=== PATIENT | male | born 1950 | race Caucasian/White ===

== ENCOUNTER 2017-02-01 10:37 | Inpatient (IN) | payer OTHER ==
[~2017-02-01] VITALS: Ht 165.1 cm; Wt 85.6 kg
[2017-02-01] VITALS (21 sets, daily range): BP systolic 132–156; BP diastolic 70–89; PULSE 76–90; RESP 13–27; Ht 165.1 cm; Wt 85.6 kg
--- NOTE | 2017-02-01 10:25 | HPN ---
Date/Time of Note Date/Time of Note DATE: 02/01/17 TIME: 10:25 Interval H&P Admission Note Pt. seen H&P reviewed: No system changes PEDRO PAYAN MD Feb 01, 2017 10:25
[~2017-02-01 10:37] MED LIST: CEFTRIAXONE 1 GM/NS 50 ML IVPB SCH
[2017-02-01] MEDS ORDERED: ASPI-664 PO (11:23)
[2017-02-01] MEDS ORDERED: LISI2.5T59 PO (11:24)
[2017-02-01] MEDS ORDERED: HYDR25TA6 PO (11:24)
[2017-02-01] MEDS ORDERED: FENTAnyl 50 MCG/ML VIAL ONE ×2 (12:09→12:58)
[2017-02-01] MEDS ORDERED: MIDAZOLAM 1 MG/ML 2 ML INJ ONE (12:09)
[2017-02-01] MEDS ORDERED: PROPOFOL 40 ML ONE (12:09)
[2017-02-01] MEDS ORDERED: LIDOCAINE 2% (SDV) 5 ML INJ ONE (12:09)
[2017-02-01] MEDS ORDERED: DEXAMETHASONE 4 MG/ML 1 ML INJ ONE (12:12)
[2017-02-01] MEDS ORDERED: ONDANSETRON 4 MG INJ ONE (12:12)
[2017-02-01] MEDS ORDERED: ACETAMINOPHEN 1000MG/100ML IV 100 ML ONE (12:12)
[2017-02-01] MEDS ORDERED: METOCLOPRAMIDE 10 MG INJ ONE (12:12)
[2017-02-01] MEDS ORDERED: LABETALOL HCL 20MG INJ IV PRN (14:30)
[2017-02-01] MEDS ORDERED: MAGNESIUM HYDROXIDE 30ML CUP PO PRN (14:30)
[2017-02-01] MEDS ORDERED: DIPHENHYDRAMINE 50 MG INJ IV PRN (14:30)
[2017-02-01] MEDS ORDERED: HYDROmorphONE (0.2 MG/ML) 10ML SYG IV PRN ×3 (14:30)
[2017-02-01] MEDS ORDERED: METOCLOPRAMIDE 10 MG INJ IV PRN (14:30)
[2017-02-01] MEDS ORDERED: CEFTRIAXONE 1 GM/50 ML (PMX) 50 ML IVPB SCH (14:30)
[2017-02-01] MEDS ORDERED: MEPERIDINE 25 MG INJ IV PRN (14:30)
[2017-02-01] MEDS ORDERED: ONDANSETRON 4 MG INJ IV PRN (14:30)
--- NOTE | 2017-02-01 14:33 | OPR ---
Date/Time of Note Date/Time of Note DATE: 02/01/17 TIME: 14:26 Operative Report Procedure Date: Feb 01, 2017 Preoperative Diagnosis Benign prostatic hypertrophy with lower urinary tract symptoms and urinary retention Postoperative Diagnosis Benign prostatic hypertrophy with lower urinary tract symptoms and urinary retention Operation Performed Transurethral resection of the prostate Surgeon Steve Diamond Anesthesia Type: general Anesthesiologist: BRIE JOE Estimated Blood Loss: 50 - 100 ml's Specimens Prostatic tissue Indications Benign prostatic hypertrophy with lower urinary tract symptoms and urinary retention Operative\Procedure Findings Benign prostatic hypertrophy with lower urinary tract symptoms Procedure Description The patient was brought to the operating room general anesthesia was induced. Timeout was done the patient was identified by his name birthdate and the procedure. The patient was given 1 g of ceftriaxone IV at the start of the procedure. The genital area was then prepped and draped in the usual sterile manner cystoscopy was done was a 22 Martiniquais cystoscope and it showed prostatic enlargement with obstruction, the bladder was trabeculated, there was no bladder tumors or stones. The cystoscope was then removed and the urethra was dilated with a [place] dilators up to #30 Martiniquais. The 26 Martiniquais bipolar resectoscope sheath was then introduced under direct vision through the penile urethra all the way to the bladder. Then the resection of the prostate was started first the median lobe was resected then the right lateral lobe then the left lateral lobe and finally the anterior lobe as well as apical tissue. All the bleeders were electrocoagulated, all the prostatic chips were evacuated, good hemostasis was obtained. The ureteral orifices as well as external sphincter were intact and safeguarded during the whole procedure. At the end of the procedure the resectoscope was removed and #24 Martiniquais three-way Lopez catheter was inserted into the bladder the balloon was inflated with 60 mL of sterile water the catheter was connected to a drainage back and continuous bladder irrigation was started in the operating room with normal saline. The patient was transferred to the recovery room in stable and satisfactory condition. STEVE DIAMOND MD Feb 01, 2017 14:33
[2017-02-01] MEDS: DOCUSATE SODIUM 100 MG CAP PO SCH ×2 (19:57→20:38)
[2017-02-01] MEDS ORDERED: HYDROCODONE/APAP (5/325) TAB PO PRN (20:30)
[2017-02-01] MEDS: CEFTRIAXONE 1 GM/50 ML (PMX) 50 ML IVPB SCH (20:34)
[2017-02-01] MEDS: DEXTROSE 5%-0.45% NACL 1,000 ML IV SCH (20:34)
[2017-02-01] MEDS: LISINOPRIL 5 MG TAB PO SCH (20:37)
[2017-02-01] MEDS: HYDROCHLOROTHIAZIDE 25 MG TAB PO SCH (20:38)
[2017-02-02 01:52] VITALS: BP 98/67; RESP 20
[2017-02-02 06:20] LABS: BASOPHILS % 0.2 % (0.0-2.0); EOSINOPHILS % 0.1 % (0.0-7.0); HEMATOCRIT 38.5 % (42.0-52.0); LYMPHOCYTES # 1.2 10^3/ul (0.8-2.9); MEAN CORPUSCULAR HEMOGLOBIN 29.8 pg (29.0-33.0); MEAN CORPUSCULAR HGB CONC 33.8 g/dl (32.0-37.0); MEAN CORPUSCULAR VOLUME 88.3 fl (82.0-101.0); MEAN PLATELET VOLUME 9.6 fl (7.4-10.4); MONOCYTE # 0.8 10^3/ul (0.3-0.9); MONOCYTES % 6.4 % (0.0-11.0); NEUTROPHIL # 10.2 10^3/ul (1.6-7.5); NEUTROPHILS % 82.9 % (39.0-77.0); PLATELET COUNT 196 10^3/UL (140-415); RED BLOOD COUNT 4.36 10^6/ul (4.70-6.10); RED CELL DISTRIBUTION WIDTH 13.1 % (11.5-14.5); WHITE BLOOD COUNT 12.3 10^3/ul (4.8-10.8)
[2017-02-02 07:19] VITALS: BP 104/59; RESP 20
[2017-02-02 08:06] VITALS: BP 104/59; RESP 18
--- NOTE | 2017-02-02 08:53 | PN ---
Date/Time of Note Date/Time of Note DATE: 02/02/17 TIME: 08:51 Assessment/Plan VTE Prophylaxis VTE Prophylaxis Intervention: SCD's Lines/Catheters IV [facility] Peripheral IV Urinary Cath still in place: Yes Reason Cath still needed: other (indicate) (Status post TURP) Assessment/Plan Chief Complaint/Hosp Course Patient is status post transurethral resection of the prostate and has continuous bladder irrigation. The irrigation return is pinkish and he still needed irrigation for today therefore we will keep the irrigation going at most likely will stop it tomorrow and if his urine remains clear then he could be discharged home with the Lopez catheter and the left bag Problems: Exam/Review of Systems Vital Signs Vitals Vital Signs Date Time Temp Pulse Resp B/P Pulse Ox O2 Delivery O2 Flow Rate FiO2 02/02/17 08:06 97.7 70 18 104/59 96 02/01/17 18:00 Room Air Intake and Output 02/01/17 02/01/17 02/02/17 15:00 23:00 07:00 Intake Total 1900 ml 5470 ml 400 ml Output Total 3400 ml 5550 ml Balance -1500 ml -80 ml 400 ml Results Result Diagram: 02/02/17 0538 Results 24 hrs Laboratory Tests Test 02/02/17 05:38 White Blood Count 12.3 H Red Blood Count 4.36 L Hemoglobin 13.0 L Hematocrit 38.5 L Mean Corpuscular Volume 88.3 Mean Corpuscular Hemoglobin 29.8 Mean Corpuscular Hemoglobin Concent 33.8 Red Cell Distribution Width 13.1 Platelet Count 196 Mean Platelet Volume 9.6 Neutrophils % 82.9 H Lymphocytes % 10.0 L Monocytes % 6.4 Eosinophils % 0.1 Basophils % 0.2 Nucleated Red Blood Cells % 0.0 Neutrophils # 10.2 H Lymphocytes # 1.2 Monocytes # 0.8 Eosinophils # 0.0 Basophils # 0.0 Nucleated Red Blood Cells # 0.0 Medications Medications Current Medications Dextrose/Sodium Chloride (D5-1/2ns) 1,000 ml @ 50 mls/hr Q20H IV Last administered on 02/01/17 20:34; Admin Dose 50 MLS/HR; Start 02/01/17 at 14:13 Hydrochlorothiazide (Hydrochlorothiazide) 25 mg DAILY PO Last administered on 9 /21/17at 20:38; Admin Dose 25 MG; Start 02/01/17 at 14:30 Lisinopril (Zestril) 2.5 mg DAILY PO Last administered on 02/01/17 20:37; Admin Dose 2.5 MG; Start 02/01/17 at 14:30 Docusate Sodium (Colace) 100 mg BID PO Last administered on 02/01/17 20:38; Admin Dose 100 MG; Start 02/01/17 at 14:30 Magnesium Hydroxide 30 ml 30 ml DAILY PRN PO CONSTIPATION; Start 02/01/17 at 14 :30 Ceftriaxone Sodium (Rocephin) 50 ml @ 100 mls/hr Q24H IVPB Last administered on 02/01/17 20:34; Admin Dose 100 MLS/HR; Start 02/01/17 at 20:00 Acetaminophen/ Hydrocodone Bitart ([place] (5/325)) 1 tab Q4H PRN PO pain Last administered on 02/01/17 20:39; Admin Dose 1 TAB; Start 02/01/17 at 20:30 PEDRO PAYAN MD Feb 02, 2017 08:53
[2017-02-02] MEDS: DOCUSATE SODIUM 100 MG CAP PO SCH ×2 (09:56→20:11)
[2017-02-02] MEDS: HYDROCHLOROTHIAZIDE 25 MG TAB PO SCH (09:57)
[2017-02-02] MEDS: LISINOPRIL 5 MG TAB PO SCH (10:01)
[2017-02-02] MEDS: DEXTROSE 5%-0.45% NACL 1,000 ML IV SCH ×2 (10:13→19:25)
[2017-02-02 14:39] VITALS: BP 106/61; RESP 20
[2017-02-02 16:01] LABS: CALCIUM 9.1 mg/dl (8.4-10.2); CREATININE 0.83 mg/dl (0.61-1.24); POTASSIUM 3.5 mmol/L (3.5-5.1)
[2017-02-02 19:40] VITALS: BP 99/55; RESP 20
[2017-02-02] MEDS: CEFTRIAXONE 1 GM/50 ML (PMX) 50 ML IVPB SCH (20:11)
[2017-02-03 07:35] VITALS: BP 107/64; RESP 18
[2017-02-03] MEDS: DOCUSATE SODIUM 100 MG CAP PO SCH (09:59)
[2017-02-03] MEDS: HYDROCHLOROTHIAZIDE 25 MG TAB PO SCH (10:33)
[2017-02-03] MEDS: LISINOPRIL 5 MG TAB PO SCH (10:34)
[2017-02-03 14:00] VITALS: BP 105/57; RESP 18
--- NOTE | 2017-02-03 15:28 | PDOCDIS ---
Discharge Instructions DIAGNOSIS Discharge Diagnosis Benign prostatic hypertrophy and urinary retention CONDITION Patient Condition: Good HOME CARE INSTRUCTIONS: Diet Instructions: RegularSpecial Diet: Regular ACTIVITY: Activity Restrictions: Slowly Increase Activity Rest between Activity Avoid heavy lifting No Sexual Activity Do not Drive Bathing Restrictions: ShowerActivity Restrictions Comment: May shower or bathe , just dry the catheter and the back after you are done FOLLOW UP/APPOINTMENTS Follow-up Plan Follow-up with Dr. Diamond on Sunday or of next week. Call for appointment [phone] PEDRO DIAMOND MD Feb 03, 2017 15:27
== END 2017-02-03 17:40 | disposition home or self-care (01) | DRG 714 ==
LOC: REC 10:37 → EDSTATUS 12:30 → MS2 17:35
PROVIDERS: ADMIT Urology; ATTEND Urology
PROC: 0VT08ZZ Resection of Prostate, Via Natural or Artificial Opening Endoscopic (ICD-10-PCS; principal; 2017-02-01 12:30)
DX: N40.1 Benign prostatic hyperplasia with lower urinary tract symptoms (principal); I10 Essential (primary) hypertension; R33.8 Other retention of urine
CPT/HCPCS: 80048; 85025; 88309; J0131; J0696; J1100; J1170; J2250; J2405; J2765; J3010; J7042